=== PATIENT | female | born 1965 | race Hispanic/Latino ===

== ENCOUNTER 2018-01-07 00:34 | Observation (INO) | payer SELFPAY ==
[~2018-01-07] VITALS: Ht 160 cm; Wt 86.2 kg
[2018-01-07] MEDS ORDERED: ACETAMINOPHEN 325 MG TAB ONE (00:56)
[2018-01-07] MEDS ORDERED: SODIUM CHLORIDE 0.9% 1000ML 1,000 ML IV ONE (00:56)
[2018-01-07] MEDS ORDERED: ONDANSETRON HCL MDV 20ML 2 MG/ML VIAL ONE ×2 (00:56→09:29)
[2018-01-07 01:11] LABS: BASOPHILS % (AUTO) 0.5 % (0.0-5.0); EOSINOPHILS % (AUTO) 1.1 % (0.0-8.0); HEMATOCRIT 40.2 % (36-48); LYMPHOCYTES % (AUTO) 33.2 % (21.0-51.0); MEAN CORPUSCULAR HEMOGLOBIN 26.1 pg (27.0-33.0); MEAN CORPUSCULAR HGB CONC 33.2 g/dL (32.0-36.0); MEAN CORPUSCULAR VOLUME 78.7 fL (79-99); MONOCYTES % (AUTO) 7.3 % (3.0-13.0); NEUTROPHILS % (AUTO) 57.9 % (40.0-77.0); NUCLEATED RED BLOOD CELLS 0.1 % (0.0-0.19); PLATELET COUNT (AUTO) 164 K/uL (130-400); RED BLOOD CELL COUNT(AUTO) 5.11 MIL/uL (4.00-5.50); WHITE BLOOD COUNT (AUTO) 8.5 K/uL (4.8-10.8)
[2018-01-07 01:21] LABS: INR 0.98 (0.85-1.15); PARTIAL THROMBOPLASTIN TIME 23.1 SEC (26.3-35.5); PROTHROMBIN TIME 10.3 SEC (9.6-11.6)
[2018-01-07 01:26] LABS: POTASSIUM 4.1 mmol/L (3.5-5.1)
[2018-01-07 01:31] LABS: ALBUMIN 3.7 g/dL (3.5-5.0); BILIRUBIN,TOTAL 0.3 mg/dL (0.2-1.0); TOTAL PROTEIN, SERUM 8.7 g/dL (6.0-8.3)
[2018-01-07 03:16] LABS: APPEARANCE,URINE Clear (CLEAR); BILIRUBIN,URINE Negative (NEGATIVE); COLOR,URINE Yellow (YELLOW); GLUCOSE, URINE (UA) >=1000 mg/dL (NEGATIVE); KETONES,URINE Negative (NEGATIVE); LEUKOCYTE ESTERASE ,URINE Trace (NEGATIVE); NITRATE,URINE Negative (NEGATIVE); OCCULT BLOOD,URINE Negative (NEGATIVE); PROTEIN,URINE Negative (NEGATIVE); UROBILINOGEN,URINE 0.2 mg/dL (0.2-1.0)
[2018-01-07 03:54] LABS: RBC,URINE None Seen /HPF (0-1)
[2018-01-07 03:55] LABS: BACTERIA,URINE Few /HPF (None Seen); SQUAMOUS EPITHELIAL CELL,UR Moderate /HPF (0-2)
[2018-01-07] MEDS ORDERED: SODIUM CHLORIDE 0.9% 50 ML IV ONE (04:10)
[2018-01-07] MEDS ORDERED: CEFTRIAXONE SODIUM 1 GM ONE (04:10)
[2018-01-07] MEDS: FAMOTIDINE 20MG TAB 20 MG TAB PO SCH (05:00)
[2018-01-07] MEDS ORDERED: GLUCAGON 1MG KIT 1 MG ML IM PRN (05:00)
[2018-01-07] MEDS ORDERED: ACETAMINOPHEN 325 MG TAB PO PRN (05:00)
[2018-01-07] MEDS ORDERED: DEXTROSE 50%-WATER 50 ML DISP.SYRIN IV PRN (05:00)
[2018-01-07] MEDS ORDERED: SODIUM CHLORIDE 0.9% IV SCH (05:15)
[2018-01-07] MEDS ORDERED: BACTRIM IV SCH (05:15)
[2018-01-07] MEDS: LEVOFLOXACIN 500 MG/D5W 100 ML 100 ML IV SCH (05:15)
[2018-01-07] MEDS ORDERED: FAMOTIDINE 20MG TAB 20 MG TAB ONE (05:33)
[2018-01-07] MEDS ORDERED: MEROPENEM 500MG+NS 50ML 50 ML IV SCH (06:00)
[2018-01-07] MEDS ORDERED: LEVOFLOXACIN 500 MG/D5W 100 ML 100 ML ONE (06:05)
[2018-01-07] MEDS: INSULIN HUMULIN R 100 UNIT/ML 3ML SQ SCH ×4 (07:30→21:00)
[2018-01-07] MEDS: ENOXAPARIN SODIUM 40 MG/0.4 ML SYRINGE SQ SCH (09:00)
[2018-01-07] MEDS ORDERED: ENOXAPARIN SODIUM 40 MG/0.4 ML SYRINGE SQ ONE (09:32)
[2018-01-07] MEDS ORDERED: LISI1TAB9 PO (15:15)
[2018-01-07] MEDS ORDERED: [UNRECOGNIZED DRUG - OTHER] SQ (15:15)
[2018-01-07] MEDS ORDERED: INSULIN ASPART SQ (15:15)
[2018-01-07] MEDS ORDERED: INSULIN DEGLUDEC SQ (15:15)
[2018-01-07] MEDS ORDERED: EMPA25TA PO (15:15)
[2018-01-07] MEDS ORDERED: METF850T2 PO (15:15)
[2018-01-07 16:00] VITALS: BP 117/69
[2018-01-07] MEDS ORDERED: PHARMACY COMMUNICATION MISC SCH (18:30)
[2018-01-07 19:00] VITALS: BP 105/59
[2018-01-07 23:00] VITALS: BP 119/60
[2018-01-08 03:00] VITALS: BP 113/68
[2018-01-08] MEDS: FAMOTIDINE 20MG TAB 20 MG TAB PO SCH (05:00)
[2018-01-08] MEDS: LEVOFLOXACIN 500 MG/D5W 100 ML 100 ML IV SCH (05:01)
[2018-01-08] MEDS: ONDANSETRON HCL MDV 20ML 2 MG/ML VIAL IVP PRN ×2 (06:15→12:19)
[2018-01-08] MEDS: INSULIN HUMULIN R 100 UNIT/ML 3ML SQ SCH ×2 (06:28→12:20)
[2018-01-08 06:36] LABS: MEAN CORPUSCULAR HEMOGLOBIN 26.2 pg (27.0-33.0); MEAN CORPUSCULAR HGB CONC 33.5 g/dL (32.0-36.0); MEAN CORPUSCULAR VOLUME 78.2 fL (79-99); PLATELET COUNT (AUTO) 174 K/uL (130-400); RED BLOOD CELL COUNT(AUTO) 4.86 MIL/uL (4.00-5.50); RED CELL DISTRIBUTION WIDTH 14.8 % (11.0-15.5); WHITE BLOOD COUNT (AUTO) 5.5 K/uL (4.8-10.8)
[2018-01-08 06:39] LABS: CREATININE 0.8 mg/dL (0.5-1.5); POTASSIUM 4.4 mmol/L (3.5-5.1)
[2018-01-08 07:56] VITALS: BP 128/64
[2018-01-08] MEDS: ENOXAPARIN SODIUM 40 MG/0.4 ML SYRINGE SQ SCH (08:48)
[2018-01-08 12:00] VITALS: BP 124/65
[2018-01-08 16:00] VITALS: BP 129/80
[2018-01-08] MEDS ORDERED: LEVO500T2 PO (16:06)
== END 2018-01-08 18:10 | disposition home or self-care (01) ==
LOC: EDH 00:34 → EDHIP 00:35 → 3BH 14:42
PROVIDERS: ADMIT Family Medicine; ATTEND Family Medicine
DX: N39.0 Urinary tract infection, site not specified (principal); E11.40 Type 2 diabetes mellitus with diabetic neuropathy, unspecified; I10 Essential (primary) hypertension; Z82.49 Family history of ischemic heart disease and other diseases of the circulatory system; Z83.3 Family history of diabetes mellitus; Z87.440 Personal history of urinary (tract) infections; Z88.0 Allergy status to penicillin; Z79.899 Other long term (current) drug therapy
CPT/HCPCS: 36415 ×2; 71045; 74176; 80048; 80053; 81001; 82948 ×6; 83605 ×2; 83735; 85025; 85027; 85610; 85730; 87040 ×2; 87088; 96365; 96366; 96372 ×2; 96375; 96376; 99285; G0378 ×42; J0696; J1650 ×2; J1815 ×2; J1956 ×2; J2185; J7030

== ENCOUNTER 2019-08-07 18:31 | Emergency (ER) | payer OTHER ==
[~2019-08-07 18:31] MED LIST: INSULIN ASPART SQ; INSULIN DEGLUDEC SQ; LEVO500T2 PO; LISI1TAB32 PO; METF-445 PO; [UNRECOGNIZED DRUG - OTHER] SQ
[2019-08-07] MEDS ORDERED: TETANUS/DIPHTHERIA TOXOID [ADULT] 0.5 ML VIAL IM ONE (18:58)
[2019-08-07] MEDS ORDERED: KETOROLAC TROMETHAMINE 60 MG/2 ML VIAL ONE (18:58)
[2019-08-07] MEDS ORDERED: MORPHINE SULFATE 2 MG/ML 1ML SYG ONE (18:58)
== END 2019-08-07 20:26 | disposition home or self-care (01) ==
LOC: EDH 18:31
DX: T23.102A Burn of first degree of left hand, unspecified site, initial encounter (principal); E11.8 Type 2 diabetes mellitus with unspecified complications; Z88.0 Allergy status to penicillin; T79.9XXA Unspecified early complication of trauma, initial encounter; X10.2XXA Contact with fats and cooking oils, initial encounter; Y93.G3 Activity, cooking and baking; Y92.009 Unspecified place in unspecified non-institutional (private) residence as the place of occurrence of the external cause; Y99.9 Unspecified external cause status
CPT/HCPCS: 90471; 90714; 96372 ×2; 99284; J1885

== ENCOUNTER 2022-03-28 11:37 | Emergency (ER) | payer OTHER ==
[~2022-03-28] VITALS: Ht 160 cm; Wt 97.5 kg
[~2022-03-28 11:37] MED LIST changes: -LISI1TAB32 PO; +LISI1TAB49 PO
[2022-03-28] MEDS ORDERED: IPRATROPIUM/ALBUTEROL SULFATE 3 ML SOLUTION IH ONE (13:00)
[2022-03-28 13:02] LABS: BASOPHILS % (AUTO) 0.6 % (0.0-5.0); HEMATOCRIT 38.6 % (36-48); LYMPHOCYTES % (AUTO) 30.6 % (21.0-51.0); MEAN CORPUSCULAR HEMOGLOBIN 24.8 pg (27.0-33.0); MEAN CORPUSCULAR HGB CONC 31.3 g/dL (32.0-36.0); MEAN CORPUSCULAR VOLUME 79.3 fL (79-99); MONOCYTES % (AUTO) 15.3 % (3.0-13.0); NEUTROPHILS % (AUTO) 49.8 % (40.0-77.0); PLATELET COUNT (AUTO) 104 K/uL (130-400); RED BLOOD CELL COUNT(AUTO) 4.87 MIL/uL (4.00-5.50); RED CELL DISTRIBUTION WIDTH 16.3 % (11.0-15.5); WHITE BLOOD COUNT (AUTO) 3.5 K/uL (4.8-10.8)
[2022-03-28 13:21] LABS: ALBUMIN 3.1 g/dL (3.5-5.0); BILIRUBIN,TOTAL 0.4 mg/dL (0.2-1.0); CREATININE 0.9 mg/dL (0.5-1.5); POTASSIUM 3.9 mmol/L (3.5-5.1); TOTAL PROTEIN, SERUM 7.8 g/dL (6.0-8.3)
[2022-03-28] MEDS ORDERED: GUAIFENESIN-CODEINE 5 ML SYRUP PO ONE (13:30)
[2022-03-28] MEDS ORDERED: DEXAMETHASONE SOD PHOSPHATE 4 MG/ML 1ML VIAL IVP ONE (13:30)
[2022-03-28] MEDS ORDERED: AZITHROMYCIN 250 MG TABLET PO ONE (14:30)
[2022-03-28] MEDS ORDERED: ALBUTEROL INHALER 90MCG/INH IH ONE (14:30)
[2022-03-28] MEDS ORDERED: D-ME118S47 PO (14:40)
[2022-03-28] MEDS ORDERED: AZIT1PAC7 PO (14:40)
[2022-03-28] MEDS ORDERED: IBUP-2070 PO (14:40)
[2022-03-28 14:44] VITALS: BP 126/66
== END 2022-03-28 15:01 | disposition home or self-care (01) ==
LOC: EDH 11:37
DX: J20.9 Acute bronchitis, unspecified (principal); R05.9 Cough, unspecified; Z20.822 Contact with and (suspected) exposure to COVID-19; E10.9 Type 1 diabetes mellitus without complications; E78.00 Pure hypercholesterolemia, unspecified; I10 Essential (primary) hypertension; Z88.0 Allergy status to penicillin; Z79.899 Other long term (current) drug therapy; Z98.890 Other specified postprocedural states
CPT/HCPCS: 36415; 71045; 80053; 85025; 87635; 87804 ×2; 94640; 96374; 99284; C9803; J1100

== ENCOUNTER 2023-08-04 14:09 | Emergency (ER) | payer OTHER ==
[~2023-08-04] VITALS: Ht 160 cm; Wt 102.1 kg
[~2023-08-04 14:09] MED LIST changes: +AZIT1PAC7 PO; +BROM118S48 PO; +IBUP-2070 PO
[2023-08-04 14:47] LABS: APPEARANCE,URINE CLOUDY (CLEAR); BILIRUBIN,URINE NEGATIVE (NEGATIVE); COLOR,URINE YELLOW (YELLOW); GLUCOSE, URINE (UA) 300 mg/dL (NEGATIVE); KETONES,URINE 10 mg/dL (NEGATIVE); LEUKOCYTE ESTERASE ,URINE NEGATIVE Leu/uL (NEGATIVE); NITRATE,URINE NEGATIVE (NEGATIVE); OCCULT BLOOD,URINE NEGATIVE (NEGATIVE); PROTEIN,URINE 20 mg/dL (NEGATIVE)
[2023-08-04 14:50] LABS: INFLUENZA TYPE A Negative For Type A (NEGATIVE); INFLUENZA TYPE B Negative For Type B (NEGATIVE)
[2023-08-04 14:53] LABS: ADD UA MICROSCOPIC YES
[2023-08-04 14:55] LABS: BACTERIA,URINE RARE /HPF (None Seen); MUCUS,URINE RARE LPF (None Seen); SQUAMOUS EPITHELIAL CELL,UR RARE /HPF (0-2); YEAST,URINE BUDDING FEW /HPF (None Seen)
[2023-08-04 15:12] LABS: HEMATOCRIT 39.2 % (36-48); MEAN CORPUSCULAR HEMOGLOBIN 27.4 pg (27.0-33.0); MEAN CORPUSCULAR HGB CONC 31.9 g/dL (32.0-36.0); RED BLOOD CELL COUNT(AUTO) 4.56 MIL/uL (4.00-5.50); RED CELL DISTRIBUTION WIDTH 13.9 % (11.0-15.5); WHITE BLOOD COUNT (AUTO) 7.4 K/uL (4.8-10.8)
[2023-08-04 15:15] LABS: SARS-CoV-2, RNA, NAAT NEGATIVE SARS CoV-2 (NEGATIVE)
[2023-08-04] MEDS ORDERED: ONDANSETRON ODT 4MG TAB SL ONE (15:30)
[2023-08-04 15:54] LABS: ALBUMIN 2.8 g/dL (3.5-5.0); BILIRUBIN,TOTAL 0.8 mg/dL (0.2-1.0); CREATININE 0.8 mg/dL (0.5-1.5); POTASSIUM 4.9 mmol/L (3.5-5.1); TOTAL PROTEIN, SERUM 6.6 g/dL (6.0-8.3)
[2023-08-04] MEDS ORDERED: ONDA4TAB10 SL (16:53)
[2023-08-04 17:31] VITALS: BP 135/81; PULSE 82; RESP 16; O2SAT 100
== END 2023-08-04 17:44 | disposition home or self-care (01) ==
LOC: EDH 14:09
DX: A08.4 Viral intestinal infection, unspecified (principal); E11.9 Type 2 diabetes mellitus without complications; E78.00 Pure hypercholesterolemia, unspecified; I10 Essential (primary) hypertension; Z88.0 Allergy status to penicillin; Z20.822 Contact with and (suspected) exposure to COVID-19
CPT/HCPCS: 99285; 74176; 71045; 87635; 84484; 80053; 83690; 85027; 87804 ×2; 81001; 36415; 93005; C9803